=== PATIENT | male | born 2000 | race Caucasian/White ===

== ENCOUNTER 2024-12-01 23:35 | Emergency (ER) | payer OTHER | END 2024-12-02 00:24 | disposition home or self-care (01) | LOC: CSHERS 23:35 | DX: S93.492A Sprain of other ligament of left ankle, initial encounter (principal); W17.89XA Other fall from one level to another, initial encounter; Y30.XXXA Falling, jumping or pushed from a high place, undetermined intent, initial encounter | CPT/HCPCS: 99283 ==